=== PATIENT | female | born 1955 | race Caucasian/White ===

== ENCOUNTER 2018-05-03 09:36 | Day surgery (SDC) | payer OTHER ==
[~2018-05-03 09:36] MED LIST: ROCURONIUM 50 MG INJ; SUCCINYLCHOLINE CHLORIDE 100 MG/5 ML SYG IV
[2018-05-03] MEDS ORDERED: IOHEXOL 300MG/ML 30 ML BTL (12:03)
[2018-05-03] MEDS ORDERED: hydrALAzine 20 MG INJ IV (12:30)
[2018-05-03] MEDS ORDERED: DIPHENHYDRAMINE 50 MG INJ IV (12:30)
[2018-05-03] MEDS ORDERED: OXYCODONE/ACETAMINOPHEN (5/325) TAB PO (12:30)
[2018-05-03] MEDS ORDERED: HYDROmorphONE 1 MG/5 ML IV SYRINGE IV (12:30)
[2018-05-03] MEDS ORDERED: LABETALOL HCL 20MG INJ IV (12:30)
[2018-05-03] MEDS ORDERED: MEPERIDINE 25 MG INJ IV (12:30)
[2018-05-03] MEDS ORDERED: ONDANSETRON 4 MG INJ IV (12:30)
[2018-05-03] MEDS ORDERED: PROPOFOL 100 ML (12:40)
[2018-05-03] MEDS ORDERED: FENTAnyl 50 MCG/ML VIAL (12:45)
[2018-05-03] MEDS ORDERED: CEFAZOLIN 1 GM INJ ×2 (12:49→12:51)
[2018-05-03] MEDS ORDERED: ONDANSETRON 4 MG INJ (12:55)
[2018-05-03] MEDS ORDERED: METOCLOPRAMIDE 10 MG INJ (12:55)
[2018-05-03] MEDS ORDERED: EPHEDrine 25 MG/5 ML SYG (13:04)
[2018-05-03] MEDS ORDERED: CIPROFLOXACIN 400MG/D5W 200 ML (13:04)
[2018-05-03] MEDS ORDERED: HYDROCODONE/APAP (5/325) TAB PO (15:00)
[2018-05-03] MEDS: HYDROmorphONE 1 MG/5 ML IV SYRINGE IV ×2 (15:08→15:27)
[2018-05-03] MEDS: OXYCODONE/ACETAMINOPHEN (5/325) TAB PO (15:32)
== END 2018-05-03 17:00 | disposition home or self-care (01) ==
LOC: SDS 09:36
DX: N20.0 Calculus of kidney (principal); I10 Essential (primary) hypertension
CPT/HCPCS: 52356; 74430; 87086; 88300

== ENCOUNTER → 2018-07-08 | Outpatient (CLI) | payer OTHER | END | disposition home or self-care (01) | LOC: HKI 11:07 | DX: M17.12 Unilateral primary osteoarthritis, left knee (principal); I10 Essential (primary) hypertension | CPT/HCPCS: 73564 ==

== ENCOUNTER → 2018-08-07 | Outpatient (CLI) | payer OTHER | END | disposition home or self-care (01) | LOC: HKI 09:42 | DX: M17.12 Unilateral primary osteoarthritis, left knee (principal) | CPT/HCPCS: 20610 ==